=== PATIENT | male | born 1935 | race Caucasian/White ===

== ENCOUNTER 2017-06-07 07:00 | Inpatient (IN) ==
[~2017-06-07 07:00] MED LIST: ZOLPIDEM 5 MG TABLET PO STA
[2017-06-07] MEDS ORDERED: DEXTROSE 50% 25 GM/50 ML VIAL IV PRN (10:13)
[2017-06-07] MEDS ORDERED: GLUCAGON 1 MG VIAL IM PRN (10:13)
[2017-06-07] MEDS ORDERED: PANTOPRAZOLE 40 MG TABLET PO ONE (10:26)
[2017-06-07] MEDS ORDERED: ASPIRIN CHEW 81 MG TABLET PO ONE (11:06)
[2017-06-07] MEDS ORDERED: ATORVASTATIN 40 MG TABLET PO ONE (11:06)
[2017-06-07 12:33] LABS: Albumin 3.4 G/DL (3.4-5.0); Bilirubin,Total 0.6 MG/DL (0.2-1.0); Calcium 8.9 MG/DL (8.5-10.1); Osmolality,Calculated 256.9 MOS/KG (273-304)
[2017-06-07 12:34] LABS: Basophils # 0.1 10*3/uL (0.0-0.2); Basophils % 0.8 % (0.0-0.8); Eosinophils # 0.3 10*3/uL (0.0-0.87); Eosinophils % 4.1 % (0.00-10.9); Hemoglobin 11.3 GM/DL (14.0-18.0); Immature Granulocytes % 0.3 %; Immature Granulocytes Absolute 0.02 #; Lymphocytes # 1.1 10*3/uL (1.4-4.0); Lymphocytes % 15.3 % (21.2-54.2); Mean Corpuscular HGB Conc 34.2 GM/DL (32-36); Mean Corpuscular Hemoglobin 32 PG (27-34); Mean Corpuscular Volume 92.7 FL (87-102); Mean Platelet Volume 10.1 FL (9.6-12.0); Monocytes # 0.7 10*3/uL (0.11-0.8); Monocytes % 9.5 % (1.7-12.7); Neutrophils # 5.1 10*3/uL (1.4-7.4); Platelet Count 234 T/CUMM (130-400); Red Blood Count 3.56 MC/CUMM (3.8-5.5); Red Cell Distribution Width 13.9 % (9.3-17.3); White Blood Count 7.3 T/CUMM (4-12)
[2017-06-07] MEDS: SODIUM CHLORIDE 0.9% 1,000 ML IV SCH (14:27)
[2017-06-07 14:39] LABS: ABG Base Excess -0.8 MMOL/L (-2.5-2.5); ABG HCO3 21.7 MMOL/L (20-26); ABG Oxygen Saturation 97.2 % (95-100); ABG PCO2 29.1 MM HG (35-48); ABG PH 7.491 (7.35-7.45); ABG PO2 100.8 MM HG (80-95); ABG TCO2 22.6 MMOL/L (23-27)
[2017-06-07] MEDS: CHLORHEXIDINE 4% SOLN 118 ML BOTTLE TOP SCH ×2 (15:00→21:40)
[2017-06-07] MEDS ORDERED: ZALEPLON 5 MG CAPSULE PO SCH (21:00)
[2017-06-07] MEDS: CARVEDILOL 12.5 MG TABLET PO SCH (21:40)
[2017-06-07] MEDS: CHLORHEXIDINE 0.12% ORAL RINSE 60 ML BOTTLE SWISH/SPIT SCH (21:43)
[2017-06-08] MEDS: CHLORHEXIDINE 4% SOLN 118 ML BOTTLE TOP SCH ×2 (05:02→09:28)
[2017-06-08] MEDS ORDERED: VANCOMYCIN 1,000 MG VIAL ONE (05:19)
[2017-06-08] MEDS ORDERED: PAPAVERINE 60 MG/2 ML VIAL ONE (05:19)
[2017-06-08] MEDS ORDERED: FAMOTIDINE 20 MG TABLET PO ONE (05:30)
[2017-06-08] MEDS ORDERED: DIAZEPAM 5 MG TABLET PO ONE (05:30)
[2017-06-08] MEDS ORDERED: SUFentanil 250 MCG/5 ML AMP ONE (05:40)
[2017-06-08] MEDS ORDERED: MIDAZOLAM 10 MG/2 ML VIAL ONE ×2 (05:40→14:59)
[2017-06-08] MEDS ORDERED: CEFUROXIME INJ 1,500 MG in SYRINGE 1 EACH IV ONE (06:00)
[2017-06-08] MEDS ORDERED: TRANEXAMIC ACID 1,000 MG/10 ML VIAL IV ONE ×2 (06:06→15:04)
[2017-06-08] MEDS ORDERED: LEVOTHYROXINE 25 MCG TABLET PO SCH (06:30)
[2017-06-08 07:40] LABS: ABG Base Excess -1.9 MMOL/L (-2.5-2.5); ABG HCO3 22.9 MMOL/L (20-26); ABG PH 7.439 (7.35-7.45); ABG TCO2 19.7 MMOL/L (23-27); Glucose Heart Surgery 111 MG/DL (74-106); Hematocrit Heart Surgery 29.9 PERCENT (42-52); Hemoglobin Heart Surgery 9.7 G/DL (14.0-18.0); Ionized Calcium Arterial 1.19 MMOL/L (1.21-1.46); PH Patient Temp Arterial 7.439; Patient Temperature 37 CELCIUS; Potassium Heart/CVR 3.5 MMOL/L (3.5-5.1); Sodium Heart/CVR 134 MMOL/L (135-145)
[2017-06-08] MEDS ORDERED: CALCIUM CHLORIDE 1,000 MG/10 ML SYRINGE IV ONE (07:59)
[2017-06-08] MEDS ORDERED: PHENYLEPHRINE DRIP 40 MG/250 ML PREMIX IV ONE (07:59)
[2017-06-08] MEDS ORDERED: NITROPRUSSIDE 50 MG/2 ML VIAL ONE (07:59)
[2017-06-08] MEDS ORDERED: SODIUM BICARBONATE 50 MEQ/50 ML SYRINGE IV ONE ×3 (08:00→14:59)
[2017-06-08] MEDS ORDERED: POTASSIUM CHLORIDE RIDER 100 ML IV ONE (08:00)
[2017-06-08] MEDS ORDERED: ALBUMIN 5% 12.5 GM/250 ML VIAL IV ONE ×4 (08:01→14:59)
[2017-06-08 09:25] LABS: Hematocrit Heart Surgery 21.5 PERCENT (42-52); Hemoglobin Heart Surgery 6.9 G/DL (14.0-18.0); PCO2 Patient Temp Venous 37.6 MM HG; PH Patient Temp Venous 7.418; PO2 Patient Temp Venous 48.7 MM HG; VBG Base Excess 0.2 MEQ/L (0-4); VBG HCO3 24.5 MEQ/L (24-28); VBG Oxygen Saturation 89.4 %; VBG PCO2 43.4 MMHG (41-51); VBG PH 7.375; VBG PO2 59.3 MMHG (17-40)
[2017-06-08] MEDS: CARVEDILOL 12.5 MG TABLET PO SCH (09:27)
[2017-06-08] MEDS: CHLORHEXIDINE 0.12% ORAL RINSE 60 ML BOTTLE SWISH/SPIT SCH (09:27)
[2017-06-08 09:55] LABS: Hematocrit Heart Surgery 23.5 PERCENT (42-52); Hemoglobin Heart Surgery 7.5 G/DL (14.0-18.0); PCO2 Patient Temp Venous 26.6 MM HG; PH Patient Temp Venous 7.535; PO2 Patient Temp Venous 44.6 MM HG; Potassium Heart/CVR 4.1 MMOL/L (3.5-5.1); VBG Base Excess 0.5 MEQ/L (0-4); VBG HCO3 24.7 MEQ/L (24-28); VBG Oxygen Saturation 90.1 %; VBG PCO2 30.8 MMHG (41-51); VBG PH 7.489; VBG PO2 54.5 MMHG (17-40)
[2017-06-08 10:24] LABS: Hemoglobin Heart Surgery 7.6 G/DL (14.0-18.0); PCO2 Patient Temp Venous 24.3 MM HG; PH Patient Temp Venous 7.553; PO2 Patient Temp Venous 43.6 MM HG; Potassium Heart/CVR 3.9 MMOL/L (3.5-5.1); VBG Base Excess -1.2 MEQ/L (0-4); VBG HCO3 21.5 MEQ/L (24-28); VBG Oxygen Saturation 88.2 %; VBG PCO2 27.7 MMHG (41-51); VBG PH 7.507; VBG PO2 53.8 MMHG (17-40)
[2017-06-08 10:58] LABS: Hemoglobin Heart Surgery 6.8 G/DL (14.0-18.0); PCO2 Patient Temp Venous 28.7 MM HG; PH Patient Temp Venous 7.509; PO2 Patient Temp Venous 39.4 MM HG; Potassium Heart/CVR 4.3 MMOL/L (3.5-5.1); VBG Base Excess -0.5 MEQ/L (0-4); VBG HCO3 22.3 MEQ/L (24-28); VBG PCO2 28.7 MMHG (41-51); VBG PH 7.509; VBG PO2 39.4 MMHG (17-40)
[2017-06-08 11:28] LABS: Hemoglobin Heart Surgery 7.3 G/DL (14.0-18.0); PCO2 Patient Temp Venous 32.5 MM HG; PH Patient Temp Venous 7.461; PO2 Patient Temp Venous 47.2 MM HG; Potassium Heart/CVR 4.2 MMOL/L (3.5-5.1); VBG Base Excess -0.9 MEQ/L (0-4); VBG HCO3 22.6 MEQ/L (24-28); VBG PCO2 32.5 MMHG (41-51); VBG PH 7.461; VBG PO2 47.2 MMHG (17-40)
[2017-06-08] MEDS ORDERED: THROMBIN TOPICAL (RECOMBINANT) 5,000 UNIT VIAL TOP ONE ×4 (11:31→13:15)
[2017-06-08 11:57] LABS: ABG Base Excess -2.2 MMOL/L (-2.5-2.5); ABG HCO3 22.6 MMOL/L (20-26); ABG PCO2 34.7 MM HG (35-48); ABG TCO2 20.7 MMOL/L (23-27); Glucose Heart Surgery 203 MG/DL (74-106); Hematocrit Heart Surgery 23.5 PERCENT (42-52); Hemoglobin Heart Surgery 7.5 G/DL (14.0-18.0); Ionized Calcium Arterial 1.42 MMOL/L (1.21-1.46); PCO2 Patient Temp Arterial 34.7 MMHG; Patient Temperature 37 CELCIUS; Potassium Heart/CVR 3.7 MMOL/L (3.5-5.1); Sodium Heart/CVR 133 MMOL/L (135-145)
[2017-06-08] MEDS: SODIUM CHLORIDE 0.9% 1,000 ML IV SCH (12:04)
[2017-06-08] MEDS ORDERED: ALBUMIN 25% 25 GM/100 ML VIAL IV ONE (12:06)
[2017-06-08] MEDS ORDERED: HEPARIN 10,000 UNIT/10 ML VIAL ONE (12:06)
[2017-06-08] MEDS ORDERED: PHENYLEPHRINE DRIP 20 MG/250 ML PREMIX IV ONE ×2 (12:06→14:59)
[2017-06-08] MEDS ORDERED: PROTAMINE SULFATE 250 MG/25 ML VIAL IV ONE (12:06)
[2017-06-08] MEDS ORDERED: MAGNESIUM SULFATE 1 GM/2 ML VIAL ONE (12:06)
[2017-06-08] MEDS ORDERED: DEXTROSE 5% KCL 20 MEQ 20 MEQ/1,000 ML BAG IV ONE (12:06)
[2017-06-08] MEDS ORDERED: methylPREDNISolone SOD SUC 1,000 MG/8 ML VIAL ONE (12:06)
[2017-06-08] MEDS ORDERED: MANNITOL 12.5 GM/50 ML VIAL IV ONE (12:07)
[2017-06-08] MEDS ORDERED: FUROSEMIDE 20 MG/2 ML VIAL ONE (12:07)
[2017-06-08] MEDS ORDERED: PROTAMINE SULFATE 50 MG/5 ML VIAL IV ONE (12:07)
[2017-06-08] MEDS ORDERED: POTASSIUM CHLORIDE 20 MEQ/10 ML VIAL ONE (12:07)
[2017-06-08 12:52] LABS: ABG Base Excess -4.9 MMOL/L (-2.5-2.5); ABG HCO3 20.4 MMOL/L (20-26); ABG PCO2 42.9 MM HG (35-48); ABG PH 7.303 (7.35-7.45); ABG TCO2 19.9 MMOL/L (23-27); Glucose Heart Surgery 189 MG/DL (74-106); Hematocrit Heart Surgery 25.9 PERCENT (42-52); Hemoglobin Heart Surgery 8.3 G/DL (14.0-18.0); Ionized Calcium Arterial 1.43 MMOL/L (1.21-1.46); PCO2 Patient Temp Arterial 42.9 MMHG; PH Patient Temp Arterial 7.303; Patient Temperature 37 CELCIUS; Potassium Heart/CVR 3.7 MMOL/L (3.5-5.1); Sodium Heart/CVR 135 MMOL/L (135-145)
[2017-06-08] MEDS ORDERED: ePHEDrine 50 MG/ML AMP ONE ×3 (12:57→15:00)
[2017-06-08] MEDS: ALBUMIN 5% 12.5 GM in PREMIX 1 EACH IV PRN ×2 (14:15→15:13)
[2017-06-08] MEDS: LACTATED RINGERS 1,000 ML IV PRN ×3 (14:30→21:21)
[2017-06-08] MEDS ORDERED: MIDAZOLAM 10 MG/2 ML VIAL IV PRN (14:42)
[2017-06-08] MEDS ORDERED: DEXTROSE 50% 25 GM/50 ML VIAL IV PRN ×2 (14:42)
[2017-06-08] MEDS ORDERED: ONDANSETRON 4 MG/2 ML VIAL IV PRN (14:42)
[2017-06-08] MEDS ORDERED: POTASSIUM CHLORIDE RIDER 10 MEQ in PREMIX 1 EACH IV PRN (14:42)
[2017-06-08] MEDS ORDERED: MIDAZOLAM 2 MG/2 ML VIAL IV PRN (14:42)
[2017-06-08] MEDS ORDERED: SODIUM CHLORIDE 0.45% 1,000 ML IV SCH ×2 (14:42)
[2017-06-08] MEDS ORDERED: INSULIN REGULAR 100 UNIT/ML IV ONE (14:42)
[2017-06-08] MEDS ORDERED: VECURONIUM 10 MG VIAL IV PRN ×2 (14:42)
[2017-06-08] MEDS ORDERED: MAGNESIUM SULF RIDER 2 GM in PREMIX 1 EACH IV PRN (14:42)
[2017-06-08] MEDS ORDERED: CALCIUM CHLORIDE 1,000 MG/10 ML SYRINGE IV PRN (14:42)
[2017-06-08] MEDS ORDERED: MORPHINE 10 MG/1 ML VIAL IV PRN (14:42)
[2017-06-08] MEDS ORDERED: NITROPRUSSIDE 100 MG in DEXTROSE 5% 250 ML IV PRN (14:42)
[2017-06-08] MEDS ORDERED: LACTATED RINGERS 250 ML IV PRN (14:42)
[2017-06-08] MEDS ORDERED: PHENYLEPHRINE DRIP 40 MG/250 ML PREMIX IV PRN (14:42)
[2017-06-08] MEDS ORDERED: MAGNESIUM SULF RIDER 4 GM in PREMIX 1 EACH IV PRN (14:42)
[2017-06-08] MEDS ORDERED: INSULIN REGULAR DRIP 100 ML IV SCH (14:42)
[2017-06-08] MEDS ORDERED: ACETAMINOPHEN 650 MG SUPP RECTAL PRN (14:42)
[2017-06-08] MEDS ORDERED: INSULIN REGULAR 100 UNIT/ML IV PRN (14:42)
[2017-06-08] MEDS ORDERED: MORPHINE 2 MG/1 ML SYRINGE IV PRN (14:42)
[2017-06-08 14:47] LABS: Basophils % 0.3 % (0.0-0.8); Eosinophils # 0.1 10*3/uL (0.0-0.87); Eosinophils % 0.6 % (0.00-10.9); Hematocrit 25.6 VOL% (42.0-52.0); Hemoglobin 8.6 GM/DL (14.0-18.0); Immature Granulocytes % 0.9 %; Immature Granulocytes Absolute 0.09 #; Lymphocytes # 0.6 10*3/uL (1.4-4.0); Mean Corpuscular HGB Conc 33.6 GM/DL (32-36); Mean Corpuscular Hemoglobin 30 PG (27-34); Mean Corpuscular Volume 88.9 FL (87-102); Monocytes # 0.6 10*3/uL (0.11-0.8); Neutrophils # 8.4 10*3/uL (1.4-7.4); Neutrophils % 86.2 % (38.7-73.9); Platelet Count 119 T/CUMM (130-400); Red Blood Count 2.88 MC/CUMM (3.8-5.5); White Blood Count 9.8 T/CUMM (4-12)
[2017-06-08 14:49] LABS: ABG Base Excess -1.7 MMOL/L (-2.5-2.5); ABG HCO3 23.2 MMOL/L (20-26); ABG Oxygen Saturation 98.6 % (95-100); ABG PCO2 39.8 MM HG (35-48); ABG PH 7.384 (7.35-7.45); ABG PO2 317.8 MM HG (80-95); ABG TCO2 24.5 MMOL/L (23-27); Glucose Heart Surgery 170 MG/DL (74-106); Hemoglobin Heart Surgery 9.4 G/DL (14.0-18.0); Potassium Heart/CVR 3.4 MMOL/L (3.5-5.1)
[2017-06-08] MEDS: POTASSIUM CHLORIDE RIDER 20 MEQ in PREMIX 1 EACH IV PRN ×3 (14:55→23:15)
[2017-06-08 14:57] LABS: INR 1.5; PT Patient Result 15.2 SECS
[2017-06-08] MEDS ORDERED: CALCIUM CHLORIDE 1,000 MG/10 ML VIAL IV ONE (14:59)
[2017-06-08] MEDS ORDERED: SEVOFLURANE 1 UNIT/15 MINUTE INH ONE (14:59)
[2017-06-08] MEDS ORDERED: SUFentanil 50 MCG/ML AMP ONE (14:59)
[2017-06-08] MEDS ORDERED: NITROGLYCERIN DRIP 50 MG/250 ML BOTTLE IV ONE (15:00)
[2017-06-08] MEDS ORDERED: MINERAL OIL/PETROLATUM OPH OINT 3.5 GM TUBE ONE (15:00)
[2017-06-08] MEDS ORDERED: VECURONIUM 10 MG VIAL IV ONE (15:00)
[2017-06-08] MEDS ORDERED: ETOMIDATE 40 MG/20 ML VIAL IV ONE (15:00)
[2017-06-08 15:30] LABS: Bilirubin,Total 1.1 MG/DL (0.2-1.0); Total Protein 4.6 G/DL (6.4-8.3)
[2017-06-08 15:31] LABS: Osmolality,Calculated 282.3 MOS/KG (273-304); Potassium 3.6 MMOL/L (3.5-5.1)
[2017-06-08 15:34] LABS: Troponin I Only 12.1 NG/ML (0.00-0.045)
[2017-06-08 17:05] LABS: ABG Base Excess -0.3 MMOL/L (-2.5-2.5); ABG HCO3 24.2 MMOL/L (20-26); ABG Oxygen Saturation 99.9 % (95-100); ABG PCO2 42.9 MM HG (35-48); ABG PH 7.373 (7.35-7.45); ABG TCO2 22.8 MMOL/L (23-27); Glucose Heart Surgery 181 MG/DL (74-106); Hematocrit Heart Surgery 30.2 PERCENT (42-52); Hemoglobin Heart Surgery 9.8 G/DL (14.0-18.0); Potassium Heart/CVR 4.5 MMOL/L (3.5-5.1)
[2017-06-08] MEDS: KETOROLAC 15 MG/1 ML VIAL IV SCH ×2 (17:11→21:20)
[2017-06-08 18:25] LABS: ABG Base Excess 0.1 MMOL/L (-2.5-2.5); ABG HCO3 24.6 MMOL/L (20-26); ABG Oxygen Saturation 99.5 % (95-100); ABG PCO2 44.4 MM HG (35-48); ABG PH 7.369 (7.35-7.45); ABG TCO2 23.6 MMOL/L (23-27); Glucose Heart Surgery 161 MG/DL (74-106); Hematocrit Heart Surgery 28.2 PERCENT (42-52); Hemoglobin Heart Surgery 9.1 G/DL (14.0-18.0); Potassium Heart/CVR 4.4 MMOL/L (3.5-5.1)
[2017-06-08] MEDS ORDERED: SODIUM CHLORIDE 0.9% 1,000 ML IV PRN ×3 (18:44→20:15)
[2017-06-08] MEDS ORDERED: FUROSEMIDE 40 MG/4 ML VIAL IV PRN (18:44)
[2017-06-08] MEDS ORDERED: CHLORHEXIDINE 0.12% ORAL RINSE 60 ML BOTTLE SWISH/SPIT SCH (21:00)
[2017-06-08] MEDS ORDERED: CEFUROXIME INJ 1,500 MG in SYRINGE 1 EACH IV SCH (22:26)
[2017-06-08 23:05] LABS: ABG Base Excess 0.8 MMOL/L (-2.5-2.5); ABG HCO3 25.2 MMOL/L (20-26); ABG Oxygen Saturation 99.4 % (95-100); ABG PCO2 41.3 MM HG (35-48); ABG PH 7.401 (7.35-7.45); ABG TCO2 23.4 MMOL/L (23-27); Glucose Heart Surgery 126 MG/DL (74-106); Hematocrit Heart Surgery 30.8 PERCENT (42-52); Hemoglobin Heart Surgery 9.9 G/DL (14.0-18.0); Potassium Heart/CVR 3.9 MMOL/L (3.5-5.1)
[2017-06-08 23:49] LABS: CKMB % 11.6 %
[2017-06-08 23:54] LABS: Troponin I Only 9.04 NG/ML (0.00-0.045)
[2017-06-09 02:00] LABS: ABG Base Excess 2.2 MMOL/L (-2.5-2.5); ABG HCO3 26.4 MMOL/L (20-26); ABG Oxygen Saturation 99.3 % (95-100); ABG PCO2 41.2 MM HG (35-48); ABG PH 7.422 (7.35-7.45); ABG TCO2 24.2 MMOL/L (23-27); Glucose Heart Surgery 120 MG/DL (74-106); Hematocrit Heart Surgery 32.3 PERCENT (42-52); Hemoglobin Heart Surgery 10.5 G/DL (14.0-18.0); Potassium Heart/CVR 4.4 MMOL/L (3.5-5.1)
[2017-06-09 03:03] LABS: ABG Base Excess 0.3 MMOL/L (-2.5-2.5); ABG HCO3 24.8 MMOL/L (20-26); ABG Oxygen Saturation 99.1 % (95-100); ABG PCO2 45.2 MM HG (35-48); ABG PH 7.367 (7.35-7.45); ABG TCO2 23.5 MMOL/L (23-27); Glucose Heart Surgery 134 MG/DL (74-106); Hematocrit Heart Surgery 32.6 PERCENT (42-52); Hemoglobin Heart Surgery 10.5 G/DL (14.0-18.0); Potassium Heart/CVR 4.5 MMOL/L (3.5-5.1)
[2017-06-09 03:05] LABS: Basophils % 0.1 % (0.0-0.8); Hematocrit 29.4 VOL% (42.0-52.0); Hemoglobin 10.4 GM/DL (14.0-18.0); Immature Granulocytes % 0.5 %; Immature Granulocytes Absolute 0.06 #; Lymphocytes # 0.6 10*3/uL (1.4-4.0); Lymphocytes % 5.5 % (21.2-54.2); Mean Corpuscular HGB Conc 35.4 GM/DL (32-36); Mean Corpuscular Hemoglobin 31 PG (27-34); Mean Platelet Volume 10.3 FL (9.6-12.0); Monocytes # 0.7 10*3/uL (0.11-0.8); Monocytes % 6.4 % (1.7-12.7); Neutrophils % 87.5 % (38.7-73.9); Platelet Count 87 T/CUMM (130-400); Red Blood Count 3.38 MC/CUMM (3.8-5.5); Red Cell Distribution Width 15.2 % (9.3-17.3); White Blood Count 11.4 T/CUMM (4-12)
[2017-06-09 03:31] LABS: Albumin 3.3 G/DL (3.4-5.0); Bilirubin,Direct 0.33 MG/DL (0.0-0.20); Bilirubin,Total 1.1 MG/DL (0.2-1.0); Calcium 8.8 MG/DL (8.5-10.1); Osmolality,Calculated 272.8 MOS/KG (273-304); Potassium 4.5 MMOL/L (3.5-5.1); Total Protein 5.2 G/DL (6.4-8.3)
[2017-06-09] MEDS: KETOROLAC 15 MG/1 ML VIAL IV SCH ×5 (03:42→21:37)
[2017-06-09] MEDS: INSULIN REGULAR 100 UNIT/ML SUBCUT SCH ×2 (04:20→06:35)
[2017-06-09] MEDS ORDERED: INSULIN REGULAR 100 UNIT/ML SUBCUT SCH (06:00)
[2017-06-09] MEDS ORDERED: POTASSIUM CHLORIDE 20 MEQ TABLET PO PRN (08:43)
[2017-06-09] MEDS ORDERED: ALUMINUM/MAGNES/SIMETH MAX STR 30 ML UDCUP PO PRN (08:43)
[2017-06-09] MEDS ORDERED: MAGNESIUM SULF RIDER 4 GM in PREMIX 1 EACH IV PRN (08:43)
[2017-06-09] MEDS ORDERED: ACETAMINOPHEN 325 MG TABLET PO PRN (08:43)
[2017-06-09] MEDS ORDERED: ONDANSETRON 4 MG/2 ML VIAL IV PRN (08:43)
[2017-06-09] MEDS ORDERED: ZALEPLON 5 MG CAPSULE PO PRN (08:43)
[2017-06-09] MEDS ORDERED: MAGNESIUM HYDROXIDE SUSP 30 ML UDCUP PO PRN (08:43)
[2017-06-09] MEDS ORDERED: MAGNESIUM SULF RIDER 2 GM in PREMIX 1 EACH IV PRN (08:43)
[2017-06-09] MEDS ORDERED: GLUCAGON 1 MG VIAL IM PRN ×2 (08:43)
[2017-06-09] MEDS ORDERED: DEXTROSE 50% 25 GM/50 ML VIAL IV PRN ×2 (08:43)
[2017-06-09] MEDS ORDERED: PANTOPRAZOLE 40 MG TABLET PO SCH (09:00)
[2017-06-09] MEDS ORDERED: ASPIRIN EC 325 MG TABLET PO SCH (09:00)
[2017-06-09] MEDS: FERROUS SULFATE 325 MG TABLET PO SCH (09:39)
[2017-06-09] MEDS: LEVOTHYROXINE 25 MCG TABLET PO SCH (09:39)
[2017-06-09] MEDS: DOCUSATE SODIUM 100 MG CAPSULE PO SCH (09:40)
[2017-06-09] MEDS: PANTOPRAZOLE 40 MG TABLET PO SCH (09:40)
[2017-06-09] MEDS: amLODIPine 5 MG TABLET PO SCH (09:40)
[2017-06-09] MEDS: CHLORHEXIDINE 0.12% ORAL RINSE 60 ML BOTTLE SWISH/SPIT SCH ×2 (09:44→21:37)
[2017-06-09] MEDS: SODIUM CHLOR 0.45% KCL 20 MEQ 20 MEQ/1,000 ML BAG IV SCH (13:47)
[2017-06-09] MEDS: ASPIRIN CHEW 81 MG TABLET PO SCH (15:02)
[2017-06-09] MEDS: ATORVASTATIN 80 MG TABLET PO SCH (21:37)
[2017-06-10] MEDS: KETOROLAC 15 MG/1 ML VIAL IV SCH ×4 (04:04→21:35)
[2017-06-10 05:13] LABS: Basophils % 0.1 % (0.0-0.8); Hematocrit 25.4 VOL% (42.0-52.0); Hemoglobin 8.7 GM/DL (14.0-18.0); Immature Granulocytes % 0.9 %; Immature Granulocytes Absolute 0.17 #; Lymphocytes # 0.6 10*3/uL (1.4-4.0); Lymphocytes % 3.4 % (21.2-54.2); Mean Corpuscular HGB Conc 34.3 GM/DL (32-36); Mean Corpuscular Hemoglobin 31 PG (27-34); Mean Corpuscular Volume 89.4 FL (87-102); Mean Platelet Volume 11.4 FL (9.6-12.0); Monocytes # 1.3 10*3/uL (0.11-0.8); Monocytes % 7.1 % (1.7-12.7); Neutrophils # 15.9 10*3/uL (1.4-7.4); Neutrophils % 88.5 % (38.7-73.9); Platelet Count 91 T/CUMM (130-400); Red Blood Count 2.84 MC/CUMM (3.8-5.5); Red Cell Distribution Width 15.7 % (9.3-17.3)
[2017-06-10 05:37] LABS: Band Neutrophils 4 % (0-10); Giant Platelets Few; Hypochromasia 1+; Lymphocytes 1 % (20-55); Ovalocytes Slight; Platelet Estimate Decreased; Segmented Neutrophils 90 % (50-85); Total Cells Counted 100
[2017-06-10 05:50] LABS: Albumin 2.8 G/DL (3.4-5.0); Bilirubin,Direct 0.18 MG/DL (0.0-0.20); Bilirubin,Indirect 0.6 MG/DL (0.0-1.0); Bilirubin,Total 0.8 MG/DL (0.2-1.0); CKMB % 4.3 %; Calcium 8.6 MG/DL (8.5-10.1); Osmolality,Calculated 280.7 MOS/KG (273-304); Potassium 4.3 MMOL/L (3.5-5.1); Total Protein 4.9 G/DL (6.4-8.3)
[2017-06-10] MEDS ORDERED: FUROSEMIDE 40 MG/4 ML VIAL IV ONE ×2 (06:00→08:39)
[2017-06-10 06:21] LABS: Troponin I Only 3.83 NG/ML (0.00-0.045)
[2017-06-10] MEDS: FERROUS SULFATE 325 MG TABLET PO SCH (09:54)
[2017-06-10] MEDS: CHLORHEXIDINE 0.12% ORAL RINSE 60 ML BOTTLE SWISH/SPIT SCH ×2 (09:54→21:35)
[2017-06-10] MEDS: amLODIPine 5 MG TABLET PO SCH (09:54)
[2017-06-10] MEDS: DOCUSATE SODIUM 100 MG CAPSULE PO SCH (09:54)
[2017-06-10] MEDS: PANTOPRAZOLE 40 MG TABLET PO SCH (09:54)
[2017-06-10] MEDS: LEVOTHYROXINE 25 MCG TABLET PO SCH (09:54)
[2017-06-10] MEDS: ASPIRIN CHEW 81 MG TABLET PO SCH (09:54)
[2017-06-10] MEDS: SODIUM CHLOR 0.45% KCL 20 MEQ 20 MEQ/1,000 ML BAG IV SCH (09:55)
[2017-06-10] MEDS: ATORVASTATIN 80 MG TABLET PO SCH (21:35)
[2017-06-10] MEDS: oxyCODONE/ACETAMINOPHEN 5-325 MG TABLET PO PRN (23:00)
[2017-06-11] MEDS: oxyCODONE/ACETAMINOPHEN 5-325 MG TABLET PO PRN (00:58)
[2017-06-11] MEDS: KETOROLAC 15 MG/1 ML VIAL IV SCH ×4 (04:23→21:55)
[2017-06-11 04:51] LABS: Basophils % 0.1 % (0.0-0.8); Eosinophils % 0.2 % (0.00-10.9); Hematocrit 24.3 VOL% (42.0-52.0); Hemoglobin 8.4 GM/DL (14.0-18.0); Immature Granulocytes Absolute 0.15 #; Lymphocytes # 1.6 10*3/uL (1.4-4.0); Lymphocytes % 10.3 % (21.2-54.2); Mean Corpuscular HGB Conc 34.6 GM/DL (32-36); Mean Corpuscular Hemoglobin 31 PG (27-34); Mean Corpuscular Volume 90.7 FL (87-102); Mean Platelet Volume 11.1 FL (9.6-12.0); Monocytes # 1.2 10*3/uL (0.11-0.8); Monocytes % 7.8 % (1.7-12.7); Neutrophils # 12.6 10*3/uL (1.4-7.4); Neutrophils % 80.6 % (38.7-73.9); Red Blood Count 2.68 MC/CUMM (3.8-5.5); Red Cell Distribution Width 15.6 % (9.3-17.3); White Blood Count 15.7 T/CUMM (4-12)
[2017-06-11 04:52] LABS: Platelet Count 90 T/CUMM (130-400)
[2017-06-11 05:31] LABS: Alanine Aminotransferase 17 U/L (16-61); Albumin 2.8 G/DL (3.4-5.0); Alkaline Phosphatase 38 U/L (45-117); Aspartate Amino Transferase 23 U/L (0-37); Bilirubin,Indirect 0.8 MG/DL (0.0-1.0); Blood Urea Nitrogen 27 MG/DL (7-18); Calcium 8.3 MG/DL (8.5-10.1); Glucose 103 MG/DL (74-106); Osmolality,Calculated 279.7 MOS/KG (273-304); Sodium 138 MMOL/L (136-145); Total Protein 4.9 G/DL (6.4-8.3)
[2017-06-11 07:45] LABS: Hypochromasia 1+; Platelet Estimate Decreased
[2017-06-11 08:49] LABS: Apearance,Urine CLEAR (Clear); Bilirubin,Urine Negative (Negative); Blood, Urine Small mg/dL (Negative); Glucose,Urine (UA) Negative (Negative); Hyaline Casts,Urine 5 /LPF (0-3); Ketones,Urine Negative (Negative); Mucus,Urine Occasional /LPF (Occasional); Nitrite,Urine Negative (Negative); Protein,Urine Negative; RBC,Urine 7 /HPF (0-4); Urine Color Yellow (Yellow); Urine Specific Gravity 1.012 (1.001-1.035); Urine Urobilinogen < 2.0 EU/DL (0.2-1.0); WBC,Urine 1 /HPF (0-6)
[2017-06-11] MEDS: FERROUS SULFATE 325 MG TABLET PO SCH (10:16)
[2017-06-11] MEDS: LEVOTHYROXINE 25 MCG TABLET PO SCH (10:16)
[2017-06-11] MEDS: amLODIPine 5 MG TABLET PO SCH (10:17)
[2017-06-11] MEDS: DOCUSATE SODIUM 100 MG CAPSULE PO SCH (10:17)
[2017-06-11] MEDS: ASPIRIN CHEW 81 MG TABLET PO SCH (10:17)
[2017-06-11] MEDS: CHLORHEXIDINE 0.12% ORAL RINSE 60 ML BOTTLE SWISH/SPIT SCH ×2 (10:18→21:55)
[2017-06-11] MEDS: PANTOPRAZOLE 40 MG TABLET PO SCH (10:18)
[2017-06-11] MEDS: TAMSULOSIN 0.4 MG CAPSULE PO SCH ×2 (14:52→21:53)
[2017-06-11] MEDS: ATORVASTATIN 80 MG TABLET PO SCH (21:53)
[2017-06-12] MEDS: KETOROLAC 15 MG/1 ML VIAL IV SCH (05:14)
[2017-06-12] MEDS ORDERED: FUROSEMIDE 40 MG/4 ML VIAL IV ONE (08:31)
[2017-06-12] MEDS: LEVOTHYROXINE 25 MCG TABLET PO SCH (09:39)
[2017-06-12] MEDS: FERROUS SULFATE 325 MG TABLET PO SCH (09:39)
[2017-06-12] MEDS: PANTOPRAZOLE 40 MG TABLET PO SCH (09:40)
[2017-06-12] MEDS: DOCUSATE SODIUM 100 MG CAPSULE PO SCH (09:40)
[2017-06-12] MEDS: TAMSULOSIN 0.4 MG CAPSULE PO SCH ×2 (09:40→20:57)
[2017-06-12] MEDS: ASPIRIN CHEW 81 MG TABLET PO SCH (09:40)
[2017-06-12] MEDS: amLODIPine 5 MG TABLET PO SCH (09:40)
[2017-06-12] MEDS: CHLORHEXIDINE 0.12% ORAL RINSE 60 ML BOTTLE SWISH/SPIT SCH ×2 (09:41→20:57)
[2017-06-12] MEDS: oxyCODONE/ACETAMINOPHEN 5-325 MG TABLET PO PRN ×2 (13:11→16:07)
[2017-06-12] MEDS: ATORVASTATIN 80 MG TABLET PO SCH (20:57)
[2017-06-13 04:49] LABS: Basophils % 0.2 % (0.0-0.8); Eosinophils # 0.6 10*3/uL (0.0-0.87); Eosinophils % 5.6 % (0.00-10.9); Hematocrit 26.1 VOL% (42.0-52.0); Hemoglobin 9.3 GM/DL (14.0-18.0); Immature Granulocytes % 0.5 %; Immature Granulocytes Absolute 0.06 #; Lymphocytes # 1.2 10*3/uL (1.4-4.0); Lymphocytes % 10.8 % (21.2-54.2); Mean Corpuscular HGB Conc 35.6 GM/DL (32-36); Mean Corpuscular Hemoglobin 32 PG (27-34); Mean Corpuscular Volume 88.8 FL (87-102); Monocytes # 0.9 10*3/uL (0.11-0.8); Monocytes % 8.5 % (1.7-12.7); Neutrophils # 8.3 10*3/uL (1.4-7.4); Neutrophils % 74.4 % (38.7-73.9); Platelet Count 138 T/CUMM (130-400); Red Blood Count 2.94 MC/CUMM (3.8-5.5); Red Cell Distribution Width 15.1 % (9.3-17.3); White Blood Count 11.1 T/CUMM (4-12)
[2017-06-13 05:43] LABS: Alanine Aminotransferase 18 U/L (16-61); Albumin 2.7 G/DL (3.4-5.0); Alkaline Phosphatase 47 U/L (45-117); Aspartate Amino Transferase 19 U/L (0-37); Blood Urea Nitrogen 20 MG/DL (7-18); Calcium 8.1 MG/DL (8.5-10.1); Glucose 114 MG/DL (74-106); Sodium 135 MMOL/L (136-145); Total Protein 5.2 G/DL (6.4-8.3)
[2017-06-13 05:44] LABS: Osmolality,Calculated 273.1 MOS/KG (273-304); Potassium 3.3 MMOL/L (3.5-5.1)
[2017-06-13] MEDS: DOCUSATE SODIUM 100 MG CAPSULE PO SCH (09:05)
[2017-06-13] MEDS: ASPIRIN CHEW 81 MG TABLET PO SCH (09:05)
[2017-06-13] MEDS: LEVOTHYROXINE 25 MCG TABLET PO SCH (09:05)
[2017-06-13] MEDS: TAMSULOSIN 0.4 MG CAPSULE PO SCH ×2 (09:05→21:24)
[2017-06-13] MEDS: FERROUS SULFATE 325 MG TABLET PO SCH (09:05)
[2017-06-13] MEDS: amLODIPine 5 MG TABLET PO SCH (09:05)
[2017-06-13] MEDS: PANTOPRAZOLE 40 MG TABLET PO SCH (09:05)
[2017-06-13] MEDS: CHLORHEXIDINE 0.12% ORAL RINSE 60 ML BOTTLE SWISH/SPIT SCH ×2 (09:05→21:25)
[2017-06-13] MEDS: ATORVASTATIN 80 MG TABLET PO SCH (21:24)
[2017-06-13] MEDS: oxyCODONE/ACETAMINOPHEN 5-325 MG TABLET PO PRN (21:24)
[2017-06-14 05:31] LABS: Basophils % 0.4 % (0.0-0.8); Eosinophils # 0.6 10*3/uL (0.0-0.87); Hematocrit 25.2 VOL% (42.0-52.0); Hemoglobin 8.6 GM/DL (14.0-18.0); Immature Granulocytes % 0.4 %; Immature Granulocytes Absolute 0.04 #; Lymphocytes # 1.3 10*3/uL (1.4-4.0); Lymphocytes % 12.8 % (21.2-54.2); Mean Corpuscular HGB Conc 34.1 GM/DL (32-36); Mean Corpuscular Hemoglobin 31 PG (27-34); Mean Corpuscular Volume 91.6 FL (87-102); Mean Platelet Volume 10.4 FL (9.6-12.0); Monocytes # 0.9 10*3/uL (0.11-0.8); Monocytes % 9.4 % (1.7-12.7); Neutrophils # 7.1 10*3/uL (1.4-7.4); Platelet Count 140 T/CUMM (130-400); Red Blood Count 2.75 MC/CUMM (3.8-5.5); Red Cell Distribution Width 15.5 % (9.3-17.3)
[2017-06-14 06:04] LABS: Alanine Aminotransferase 16 U/L (16-61); Albumin 2.4 G/DL (3.4-5.0); Alkaline Phosphatase 45 U/L (45-117); Aspartate Amino Transferase 17 U/L (0-37); Bilirubin,Indirect 0.7 MG/DL (0.0-1.0); Blood Urea Nitrogen 19 MG/DL (7-18); Calcium 7.7 MG/DL (8.5-10.1); Glucose 90 MG/DL (74-106); Osmolality,Calculated 271.1 MOS/KG (273-304); Potassium 3.6 MMOL/L (3.5-5.1); Sodium 135 MMOL/L (136-145); Total Protein 4.9 G/DL (6.4-8.3)
[2017-06-14 06:09] LABS: Troponin I Only 0.775 NG/ML (0.00-0.045)
[2017-06-14] MEDS ORDERED: LEVOFLOXACIN 500 MG TABLET PO SCH (09:00)
[2017-06-14] MEDS: DOCUSATE SODIUM 100 MG CAPSULE PO SCH (10:10)
[2017-06-14] MEDS: PANTOPRAZOLE 40 MG TABLET PO SCH (10:10)
[2017-06-14] MEDS: FERROUS SULFATE 325 MG TABLET PO SCH (10:10)
[2017-06-14] MEDS: amLODIPine 5 MG TABLET PO SCH (10:10)
[2017-06-14] MEDS: TAMSULOSIN 0.4 MG CAPSULE PO SCH (10:10)
[2017-06-14] MEDS: ASPIRIN CHEW 81 MG TABLET PO SCH (10:10)
[2017-06-14] MEDS: CHLORHEXIDINE 0.12% ORAL RINSE 60 ML BOTTLE SWISH/SPIT SCH (10:11)
[2017-06-14] MEDS: LEVOTHYROXINE 25 MCG TABLET PO SCH (10:14)
[2017-06-14 11:58] VITALS: BP 123/65
== END 2017-06-14 13:15 | disposition home or self-care (01) | DRG 220 ==
LOC: N.4E 10:44 → N.CVR 06-08 10:45 → N.TELES 06-09 08:40

== ENCOUNTER 2022-02-17 18:12 | Inpatient (IN) ==
[2022-02-17] MEDS ORDERED: SODIUM CHLORIDE 0.9% 1,500 ML IV ONE (19:11)
[2022-02-17 19:43] LABS: Basophils % 2.6 % (0.0-0.8); Hematocrit 26.7 VOL% (42.0-52.0); Hemoglobin 8.9 GM/DL (14.0-18.0); Immature Granulocytes % 12.8 %; Immature Granulocytes Absolute 0.05 #; Lymphocytes # 0.1 10*3/uL (1.4-4.0); Lymphocytes % 20.5 % (21.2-54.2); Mean Corpuscular HGB Conc 33.3 GM/DL (32-36); Mean Corpuscular Volume 96.4 FL (87-102); Monocytes % 5.1 % (1.7-12.7); Platelet Count 95 T/CUMM (130-400); Red Blood Count 2.77 MC/CUMM (3.8-5.5); Red Cell Distribution Width 18.9 % (9.3-17.3)
[2022-02-17 19:44] LABS: White Blood Count 0.4 T/CUMM (4-12)
[2022-02-17 19:51] LABS: Albumin 2.9 G/DL (3.4-5.0); Bilirubin,Total 0.5 MG/DL (0.20-1.00); Calcium 8.1 MG/DL (8.5-10.1); Osmolality,Calculated 283.5 MOS/KG (273-304); Potassium 3.9 MMOL/L (3.5-5.1); Total Protein 6.6 G/DL (6.4-8.2)
[2022-02-17] MEDS ORDERED: PIPERACILLIN/TAZOBACTAM 3,375 MG in SODIUM CHLORIDE 0.9% 100 ML IV ONE (20:00)
[2022-02-17] MEDS ORDERED: NOREPINEPHRINE 4 MG/4 ML VIAL IV ONE (20:07)
[2022-02-17] MEDS: NOREPINEPHRINE 8 MG in SODIUM CHLORIDE 0.9% 242 ML IV PRN (20:27)
[2022-02-17 20:31] LABS: Band Neutrophils 6 % (0-10); Lymphocytes 26 % (20-55); Nucleated Red Blood Cells 1 /100 WBC (0-5); Total Cells Counted 100
[2022-02-17 20:32] LABS: Ovalocytes 1+
[2022-02-17 20:33] LABS: Platelet Estimate Decreased; Toxic Granulation 1+
[2022-02-17 20:34] LABS: Acanthocytes Few
[2022-02-17 20:35] LABS: Anisocytosis Slight; Poikilocytosis 1+
[2022-02-17 20:36] LABS: Macrocytosis Slight; Microcytosis Slight
[2022-02-17] MEDS ORDERED: VANCOMYCIN INJ 1,000 MG in SODIUM CHLORIDE 0.9% 250 ML IV ONE (21:00)
[2022-02-17] MEDS ORDERED: LACTATED RINGERS 1,000 ML IV ONE (21:03)
[2022-02-17] MEDS ORDERED: ACETAMINOPHEN 500 MG TABLET PO STA (21:04)
[2022-02-17 21:08] VITALS: BP 86/49
[2022-02-17] MEDS ORDERED: ONDANSETRON 4 MG/2 ML VIAL IV PRN (21:21)
[2022-02-17] MEDS ORDERED: ACETAMINOPHEN 325 MG TABLET PO PRN (21:21)
[2022-02-17] MEDS ORDERED: ALBUTEROL 2.5 MG/3 ML NEB RESP TX PRN (21:21)
[2022-02-17] MEDS ORDERED: LACTATED RINGERS 1,000 ML IV SCH (21:30)
[2022-02-17 22:33] LABS: Arterial Base Excess iSTAT -12 MMOL/L (-2.5-2.5); Arterial O2 Saturation iSTAT 94 % (95-100); Arterial PCO2 iSTAT 30 MM HG (35-48); Arterial PO2 iSTAT 77 MM HG (80-95); Arterial Total CO2 iSTAT 15 MMO/L (23-27); Arterial pH iSTAT 7.284 (7.35-7.45)
[2022-02-17] MEDS ORDERED: SODIUM BICARBONATE 50 MEQ/50 ML VIAL IV ONE (22:44)
[2022-02-17] MEDS ORDERED: SODIUM BICARB INJ 100 MEQ in DEXTROSE 5% NACL 0.45% 1,000 ML IV SCH (23:00)
[2022-02-17] MEDS: SODIUM BICARB INJ 50 MEQ in DEXTROSE 5% NACL 0.45% 1,000 ML IV SCH (23:40)
[2022-02-17] MEDS ORDERED: ALBUTEROL/IPRATROPIUM 3 ML NEB RESP TX ONE (23:52)
[2022-02-17] MEDS: ALBUTEROL/IPRATROPIUM 3 ML NEB RESP TX SCH (23:56)
[2022-02-17] MEDS ORDERED: FUROSEMIDE 40 MG/4 ML VIAL IV ONE (23:57)
[2022-02-18] MEDS ORDERED: FUROSEMIDE 20 MG/2 ML VIAL IV ONE (00:07)
[2022-02-18] MEDS: NOREPINEPHRINE 8 MG in SODIUM CHLORIDE 0.9% 242 ML IV PRN ×5 (00:40→18:07)
[2022-02-18 01:05] LABS: Bacteria,Urine Occasional /HPF (Few); Hyaline Casts,Urine 1 /LPF (0-3); Mucus,Urine Occasional /LPF (Occasional); RBC,Urine <1 /HPF (0-4)
[2022-02-18 01:06] LABS: Bilirubin,Urine Negative (Negative); Blood, Urine Negative (Negative); Glucose,Urine (UA) Negative (Negative); Ketones,Urine Trace mg/dL (Negative); Nitrite,Urine Negative (Negative); Protein,Urine 100 mg/dL (Negative); Urine Appearance Clear (Clear); Urine Color Yellow (Yellow); Urine Specific Gravity 1.025 (1.001-1.035); Urine Urobilinogen 0.2 eU/dL (<2.0)
[2022-02-18] MEDS: CEFEPIME 1,000 MG in SODIUM CHLORIDE 0.9% 100 ML IV SCH ×3 (03:36→20:37)
[2022-02-18] MEDS ORDERED: PIPERACILLIN/TAZOBACTAM 3,375 MG in SODIUM CHLORIDE 0.9% 100 ML IV SCH (04:00)
[2022-02-18 04:24] LABS: Basophils # 0.1 10*3/uL (0.0-0.2); Basophils % 7.5 % (0.0-0.8); Hematocrit 28.8 VOL% (42.0-52.0); Hemoglobin 9.6 GM/DL (14.0-18.0); Immature Granulocytes % 8.8 %; Immature Granulocytes Absolute 0.07 #; Lymphocytes # 0.1 10*3/uL (1.4-4.0); Lymphocytes % 12.5 % (21.2-54.2); Mean Corpuscular HGB Conc 33.3 GM/DL (32-36); Mean Platelet Volume 12.1 FL (9.6-12.0); Monocytes % 2.5 % (1.7-12.7); Neutrophils % 68.7 % (38.7-73.9); Platelet Count 89 T/CUMM (130-400); Red Blood Count 2.97 MC/CUMM (3.8-5.5); Red Cell Distribution Width 19.3 % (9.3-17.3)
[2022-02-18 04:26] LABS: White Blood Count 0.8 T/CUMM (4-12)
[2022-02-18 04:31] LABS: INR 1.2; PT Patient Result 12.6 SECS (10.1-12.1)
[2022-02-18 04:43] LABS: Albumin 2.4 G/DL (3.4-5.0); Bilirubin,Total 0.5 MG/DL (0.20-1.00); Calcium 7.4 MG/DL (8.5-10.1); Osmolality,Calculated 290.1 MOS/KG (273-304); Potassium 3.7 MMOL/L (3.5-5.1); Total Protein 6.4 G/DL (6.4-8.2)
[2022-02-18 04:51] LABS: Band Neutrophils 5 % (0-10); Lymphocytes 12 % (20-55); Platelet Estimate Decreased; Total Cells Counted 100
[2022-02-18 04:52] LABS: Macrocytosis Slight
[2022-02-18] MEDS ORDERED: MAGNESIUM SULF RIDER 4 GM/100 ML PREMIX IV PRN (05:02)
[2022-02-18] MEDS ORDERED: MAGNESIUM SULF RIDER 2 GM/50 ML PREMIX IV PRN (05:02)
[2022-02-18] MEDS: NOREPINEPHRINE 16 MG in SODIUM CHLORIDE 0.9% 234 ML IV PRN ×2 (06:47→20:15)
[2022-02-18] MEDS: ALBUTEROL/IPRATROPIUM 3 ML NEB RESP TX SCH ×3 (08:03→19:47)
[2022-02-18 09:31] LABS: Arterial Base Excess iSTAT -8 MMOL/L (-2.5-2.5); Arterial Bicarbonate iSTAT 18.2 MMOL/L (20-26); Arterial O2 Saturation iSTAT 85 % (95-100); Arterial PCO2 iSTAT 39 MM HG (35-48); Arterial PO2 iSTAT 57 MM HG (80-95); Arterial Total CO2 iSTAT 19 MMO/L (23-27); Arterial pH iSTAT 7.272 (7.35-7.45)
[2022-02-18] MEDS: HYDROCORTISONE 100 MG VIAL IV SCH ×2 (09:39→18:58)
[2022-02-18] MEDS: FILGRASTIM-SNDZ 300 MCG/0.5 ML SYRINGE SUBCUT SCH (09:39)
[2022-02-18] MEDS ORDERED: VANCOMYCIN INJ 750 MG in SODIUM CHLORIDE 0.9% 250 ML IV SCH ×2 (10:00→21:00)
[2022-02-18] MEDS: SODIUM BICARB INJ 50 MEQ in DEXTROSE 5% NACL 0.45% 1,000 ML IV SCH ×2 (13:27→20:30)
[2022-02-18] MEDS ORDERED: NOREPINEPHRINE 4 MG/4 ML VIAL IV ONE (15:26)
[2022-02-18] MEDS ORDERED: ETOMIDATE 20 MG/10 ML VIAL IV ONE ×2 (15:34→15:53)
[2022-02-18] MEDS ORDERED: SUCCINYLCHOLINE 200 MG/10 ML VIAL ONE (15:35)
[2022-02-18] MEDS ORDERED: SUCCINYLCHOLINE 200 MG/10 ML VIAL IV ONE (15:53)
[2022-02-18] MEDS ORDERED: MIDAZOLAM 100 MG in SODIUM CHLORIDE 0.9% 80 ML IV PRN ×2 (16:06→19:20)
[2022-02-18] MEDS ORDERED: MIDAZOLAM 2 MG/2 ML VIAL IV ONE (16:13)
[2022-02-18] MEDS ORDERED: LACTATED RINGERS 500 ML IV ONE (16:15)
[2022-02-18] MEDS: DEXMEDETOMIDINE 200 MCG in SODIUM CHLORIDE 0.9% 48 ML IV PRN (17:00)
[2022-02-18 17:01] LABS: ABG Base Excess -8.8 MMOL/L (-2.5-2.5); ABG HCO3 17.1 MMOL/L (20-26); ABG PCO2 54.1 MM HG (35-48); ABG PO2 60.4 MM HG (80-95); ABG TCO2 18.9 MMOL/L (23-27)
[2022-02-18 17:02] LABS: ABG PH 7.171 (7.35-7.45)
[2022-02-18 17:06] LABS: ABG Oxygen Saturation 83.3 % (95-100)
[2022-02-18] MEDS ORDERED: VASOPRESSIN 100 UNITS in SODIUM CHLORIDE 0.9% 95 ML IV PRN (17:19)
[2022-02-18] MEDS ORDERED: PHENYLEPHRINE DRIP 40 MG/250 ML PREMIX IV ONE (17:52)
[2022-02-18] MEDS ORDERED: SODIUM BICARBONATE 50 MEQ/50 ML VIAL IV ONE ×2 (17:53)
[2022-02-18] MEDS ORDERED: PHENYLEPHRINE DRIP 40 MG/250 ML PREMIX IV PRN (17:53)
[2022-02-18 18:01] LABS: ABG Base Excess -8.5 MMOL/L (-2.5-2.5); ABG HCO3 17.4 MMOL/L (20-26); ABG Oxygen Saturation 84.2 % (95-100); ABG PCO2 50.5 MM HG (35-48); ABG TCO2 18.6 MMOL/L (23-27)
[2022-02-18 18:05] LABS: ABG PH 7.197 (7.35-7.45)
[2022-02-18] MEDS: VANCOMYCIN INJ 1,000 MG in SODIUM CHLORIDE 0.9% 250 ML IV SCH (21:18)
[2022-02-18] MEDS: PHENYLEPHRINE INJ 160 MG in SODIUM CHLORIDE 0.9% 234 ML IV PRN (22:10)
[2022-02-18 23:35] LABS: ABG Base Excess -7.3 MMOL/L (-2.5-2.5); ABG HCO3 18.3 MMOL/L (20-26); ABG Oxygen Saturation 91.6 % (95-100); ABG PCO2 53.7 MM HG (35-48); ABG PO2 75.4 MM HG (80-95); ABG TCO2 19.8 MMOL/L (23-27)
[2022-02-18 23:36] LABS: ABG PH 7.198 (7.35-7.45)
[2022-02-19] MEDS: HYDROCORTISONE 100 MG VIAL IV SCH ×3 (00:10→17:27)
[2022-02-19] MEDS: NOREPINEPHRINE 16 MG in SODIUM CHLORIDE 0.9% 234 ML IV PRN ×5 (00:27→18:05)
[2022-02-19] MEDS: SODIUM BICARB INJ 50 MEQ in DEXTROSE 5% NACL 0.45% 1,000 ML IV SCH ×4 (00:35→18:56)
[2022-02-19] MEDS: ALBUTEROL/IPRATROPIUM 3 ML NEB RESP TX SCH ×4 (00:58→18:50)
[2022-02-19] MEDS ORDERED: ACETAMINOPHEN 650 MG SUPP RECTAL PRN (02:20)
[2022-02-19] MEDS: DEXMEDETOMIDINE 200 MCG in SODIUM CHLORIDE 0.9% 48 ML IV PRN ×2 (02:22→08:23)
[2022-02-19] MEDS: CEFEPIME 1,000 MG in SODIUM CHLORIDE 0.9% 100 ML IV SCH ×3 (03:05→20:14)
[2022-02-19 03:28] LABS: ABG Base Excess -6.9 MMOL/L (-2.5-2.5); ABG HCO3 18.7 MMOL/L (20-26); ABG Oxygen Saturation 92.1 % (95-100); ABG PCO2 39.8 MM HG (35-48); ABG PH 7.293 (7.35-7.45); ABG PO2 70.1 MM HG (80-95); ABG TCO2 17.8 MMOL/L (23-27)
[2022-02-19 03:29] LABS: Basophils % 3.6 % (0.0-0.8); Hematocrit 25.8 VOL% (42.0-52.0); Hemoglobin 8.6 GM/DL (14.0-18.0); Immature Granulocytes % 3.6 %; Immature Granulocytes Absolute 0.03 #; Lymphocytes % 4.8 % (21.2-54.2); Mean Corpuscular HGB Conc 33.3 GM/DL (32-36); Mean Platelet Volume 12.1 FL (9.6-12.0); Monocytes % 2.4 % (1.7-12.7); NRBC # 0.02 10*3/uL; Neutrophils % 85.6 % (38.7-73.9); Platelet Count 57 T/CUMM (130-400); Red Blood Count 2.66 MC/CUMM (3.8-5.5); Red Cell Distribution Width 19.9 % (9.3-17.3)
[2022-02-19 03:32] LABS: White Blood Count 0.8 T/CUMM (4-12)
[2022-02-19 03:47] LABS: Alanine Aminotransferase 39 U/L (16-61); Albumin 1.9 G/DL (3.4-5.0); Alkaline Phosphatase 33 U/L (45-117); Aspartate Amino Transferase 118 U/L (0-37); Bilirubin,Total < 0.39 MG/DL (0.20-1.00); Blood Urea Nitrogen 45 MG/DL (7-18); Carbon Dioxide 21 MMOL/L (21-32); Chloride 113 MMOL/L (98-107); Glucose 171 MG/DL (74-106); Osmolality,Calculated 298.1 MOS/KG (273-304); Potassium 4.6 MMOL/L (3.5-5.1); Sodium 142 MMOL/L (136-145); Total Protein 5.8 G/DL (6.4-8.2)
[2022-02-19 04:12] LABS: Band Neutrophils 11 % (0-10); Lymphocytes 13 % (20-55); Total Cells Counted 99
[2022-02-19 04:13] LABS: Platelet Estimate Decreased
[2022-02-19] MEDS: FILGRASTIM-SNDZ 300 MCG/0.5 ML SYRINGE SUBCUT SCH (08:36)
[2022-02-19] MEDS ORDERED: LACTATED RINGERS 1,000 ML IV ONE (09:42)
[2022-02-19] MEDS: PHENYLEPHRINE INJ 160 MG in SODIUM CHLORIDE 0.9% 234 ML IV PRN ×2 (10:03→19:18)
[2022-02-19] MEDS: ALBUMIN 25% 25 GM/100 ML VIAL IV SCH ×2 (10:55→17:30)
[2022-02-19 12:20] LABS: ABG Base Excess -12.8 MMOL/L (-2.5-2.5); ABG HCO3 14.2 MMOL/L (20-26); ABG Oxygen Saturation 85.3 % (95-100); ABG PCO2 43.7 MM HG (35-48); ABG PO2 65.2 MM HG (80-95); ABG TCO2 14.8 MMOL/L (23-27)
[2022-02-19 12:24] LABS: ABG PH 7.156 (7.35-7.45)
[2022-02-19] MEDS ORDERED: SODIUM BICARBONATE 50 MEQ/50 ML VIAL IV ONE ×3 (12:27→12:29)
[2022-02-19] MEDS ORDERED: FAMOTIDINE 20 MG/2 ML VIAL IV SCH (21:00)
[2022-02-19] MEDS ORDERED: FAMOTIDINE 20 MG TABLET PO SCH (21:00)
[2022-02-19] MEDS: VANCOMYCIN INJ 1,000 MG in SODIUM CHLORIDE 0.9% 250 ML IV SCH (21:53)
== END 2022-02-19 20:40 | disposition expired | DRG 871 ==
LOC: N.ED 18:12 → N.EDINP 20:16 → SUATTDRO 20:16 → N.CVR 20:53
PROVIDERS: ADMIT Family Medicine; ATTEND Internal Medicine